=== PATIENT | female | born 1935 | race African-American/Black ===

== ENCOUNTER 2018-02-11 20:26 | Emergency (ER) | payer OTHER ==
[2018-02-11 20:36] VITALS: BMI 17.3
[2018-02-11 21:03] LABS: BILIRUBIN,URINE NEGATIVE (NEGATIVE); BLOOD/HEMOGLOBIN,URINE 2+ (NEGATIVE); GLUCOSE, URINE NEGATIVE (NEGATIVE); KETONES,URINE NEGATIVE (NEGATIVE); LEUKOCYTE ESTERASE ,URINE 2+ (NEGATIVE); NITRITES,URINE NEGATIVE (NEGATIVE); PROTEIN,URINE NEGATIVE (NEGATIVE); UROBILINOGEN,URINE NORMAL (NORMAL)
[2018-02-11 21:04] LABS: APPEARANCE,URINE SLIGHTLY HAZY (CLEAR); COLOR,URINE YELLOW (YELLOW)
[2018-02-11 21:11] LABS: BACTERIA,URINE 1+ /HPF (NEGATIVE); SQUAMOUS EPITHELIAL CELL,UR RARE /HPF (NEGATIVE)
--- NOTE | 2018-02-11 21:28 | DR.GENAD ---
HPI - PCP Primary Care Physician: Emelina - Complaint/Symptoms Chief Complaint Doctors Comments: Patient noticed blood in urine today. She denies a history of cardiopulmonary disease. Chief Complaint:: blood in urine - Source History Provided: Patient - Mode of Arrival Mode of Arrival: Ambulatory - Timing Onset of Chief Complaint: 02/04/18 PMH - PMH Past Medical History: Yes Past Medical History: Coronary Artery Disease, Dyslipidemia, Hypertension Past Surgical History: Yes Past Surgical History Comment: anneurysm repair - Family History History of Family Medical Conditions: No - Social History Does patient currently use any type of tobacco product: No Have you used tobacco products in the last 12 months: No Type of Tobacco Use: None Does any household member use tobacco: No Alcohol Use: None Do you use any recreational Drugs:: No Lives With: Family Lives Where: Home - infectious screening In the last 2 months have you had wt loss of >10#?: NO Have you had fever, night sweats or hemotysis?: No Have you traveled outside the country in the last 6 months?: No Isolation: Standard ROS - Review of Systems Eyes: No Symptoms Reported ENTM: No Symptoms Reported Respiratoy: No Symptoms Reported Cardiovascular: No Symptoms Reported Gastrointestinal/Abdominal: No Symptoms Reported Genitourinary: No Symptoms Reported Neurological: No Symptoms Reported Musculoskeletal: No Symptoms Reported Integumentary: No Symptoms Reported Hematologic/Lymphatic: No Symptoms Reported Endocrine: No Symptoms Reported Psychiatric: No Symptoms Reported All Other Systems: Reviewed and Negative PE - Vital Signs Vitals: Temperature 99.4 F Pulse Rate 97 Respiratory Rate 16 Blood Pressure 183/91 O2 Sat by Pulse Oximetry 99 - General Limitations: No Limitations General Appearance: Alert - Head Head Exam: Normal Inspection, Atraumatic - Eyes Eye exam: Normal Appearance, PERRL, EOMI - ENT ENT Exam: Normal Exam External Ear Exam: Normal External Inspection TM/Canal Exam: Bilateral Normal Nose Exam: Normal Nose Exam Mouth Exam: Normal Inspection Throat Exam: Normal Inspection - Neck Neck Exam: Normal Inspection, Full ROM - Chest Chest Inspection: Normal Inspection, Symmetric Chest Wall Rise - Respiratory Respiratory Exam: Normal Lung Sounds Bilat Respiratory Exam: Bilateral Clear to Auscultation - Cardiovascular Cardiovascular Exam: Regular Rate, Normal Rhythm - Abdominal Exam Abdominal Exam: Normal Inspection, Normal Bowel Sounds Abdominal Tenderness: negative: RUQ, RLQ, LUQ, LLQ, Epigastrium, Suprapubic, Diffuse, Mild, Moderate, Severe, Other - Extremities Extremities Exam: Normal Inspection Course - Reevaluation 1st: Improved ROR - Labs Reviewed Laboratory Results Reviewed?: Yes (Urine:2+bld, wbc: 10-20, Leuk 2+) Result Diagrams: 02/11/18 21:48 02/11/18 21:48 Laboratory: WBC 3.9 X10^3/uL (3.6-10.0) 02/11/18 21:48 RBC 4.06 X10^6/uL (3.5-5.4) 02/11/18 21:48 Hgb 13.4 g/dL (12.0-16.0) 02/11/18 21:48 Hct 40.6 % (36.0-47.0) 02/11/18 21:48 MCV 99.9 fL (80.0-100.0) 02/11/18 21:48 MCH 32.9 pg (27.0-34.0) 02/11/18 21:48 MCHC 32.9 g/dL (33.0-35.0) L 02/11/18 21:48 RDW 14.0 % (11.6-16.5) 02/11/18 21:48 Plt Count 252 X10^3/uL (150.0-450.0) 02/11/18 21:48 MPV 7.3 fL (7.4-11.0) L 02/11/18 21:48 Neut % (Auto) 61.5 % (42.0-75.0) 02/11/18 21:48 Lymph % (Auto) 27.3 % (21.0-51.0) 02/11/18 21:48 [place] % (Auto) 10.7 % (0.0-13.0) 02/11/18 21:48 Eos % (Auto) 0.2 % (0.9-2.9) L 02/11/18 21:48 Baso % (Auto) 0.3 % (0.2-1.0) 02/11/18 21:48 Neut # (Auto) 2.4 x10^3/uL (2.2-4.8) 02/11/18 21:48 Lymph # (Auto) 1.1 X10^3/uL (1.3-2.9) L 02/11/18 21:48 [place] # (Auto) 0.4 x10^3/uL (0.3-0.8) 02/11/18 21:48 Eos # (Auto) 0.0 x10^3/uL (0.0-0.2) 02/11/18 21:48 Baso # (Auto) 0.0 X10^3/uL (0.0-0.1) 02/11/18 21:48 Absolute Nucleated RBC 0.1 /100WBC 02/11/18 21:48 Sodium 141 mmol/L (136-145) 02/11/18 21:48 Corrected Sodium TNP 02/11/18 21:48 Potassium 4.1 mmol/L (3.5-5.1) 02/11/18 21:48 Chloride 105 mmol/L (98-107) 02/11/18 21:48 Carbon Dioxide 30.0 mmol/L (21-32) 02/11/18 21:48 BUN 17 mg/dL (7-18) 02/11/18 21:48 Creatinine 0.98 mg/dL (0.55-1.02) 02/11/18 21:48 Est GFR (MDRD) Af Amer > 60 (>60) 02/11/18 21:48 Est GFR (MDRD) Non-Af 58 (>60) L 02/11/18 21:48 Glucose 101 mg/dL (65-99) H 02/11/18 21:48 Calcium 9.5 mg/dL (8.5-10.1) 02/11/18 21:48 Corrected Calcium TNP 02/11/18 21:48 Total Bilirubin 0.30 mg/dL (0.2-1.0) 02/11/18 21:48 AST 11 Units/L (15-37) L 02/11/18 21:48 ALT 22 Units/L (12-78) 02/11/18 21:48 Alkaline Phosphatase 87 Units/L (46-116) 02/11/18 21:48 Total Protein 9.4 g/dL (6.4-8.2) H 02/11/18 21:48 Albumin 4.1 g/dL (3.4-5.0) 02/11/18 21:48 Globulin 5.3 g/dL (2.5-4.5) H 02/11/18 21:48 Albumin/Globulin Ratio 0.8 Ratio (1.1-2.1) L 02/11/18 21:48 Specimen Type Clean catch urine 02/11/18 20:56 Urine Color Yellow (YELLOW) 02/11/18 20:56 Urine Appearance Slightly hazy (CLEAR) 02/11/18 20:56 Urine pH 5.0 (5.0 - 8.0) 02/11/18 20:56 Ur Specific [place] 1.025 (1.000-1.030) 02/11/18 20:56 Urine Protein Negative (NEGATIVE) 02/11/18 20:56 Urine Glucose (UA) Negative (NEGATIVE) 02/11/18 20:56 Urine Ketones Negative (NEGATIVE) 02/11/18 20:56 Urine Occult Blood 2+ (NEGATIVE) 02/11/18 20:56 Urine Nitrite Negative (NEGATIVE) 02/11/18 20:56 Urine Bilirubin Negative (NEGATIVE) 02/11/18 20:56 Urine Urobilinogen Normal (NORMAL) 02/11/18 20:56 Ur Leukocyte Esterase 2+ (NEGATIVE) 02/11/18 20:56 Urine RBC 3-5 /HPF (NONE SEEN) 02/11/18 20:56 Urine WBC 10-20 /HPF (NONE SEEN) 02/11/18 20:56 Ur Squamous Epith Cells Rare /HPF (NEGATIVE) 02/11/18 20:56 Urine Bacteria 1+ /HPF (NEGATIVE) 02/11/18 20:56 Ur Culture Indicated? Yes/culture set up 02/11/18 20:56 - XRAY XRAY Interpreted by: Radiologist (Chest: Borderline cardiomegaly given AP technique with either scarring or mild effusion within the left costophrenic sulcus. No acute airspace disease identified.) - Diagnosis Discharge Problem: UTI (urinary tract infection) Qualifiers: Urinary tract infection type: acute cystitis Hematuria presence: with hematuria Qualified Code(s): N30.01 - Acute cystitis with hematuria - Discharge Plan Condition: Stable - Follow ups/Referrals Follow ups/Referrals: HUSEYIN PRICE [Primary Care Provider] - 3 days - Instructions
[2018-02-11] MEDS ORDERED: ROCEPHIN VIAL 500 MG IM ONE (21:29)
[2018-02-11] MEDS ORDERED: CATAPRES TAB 0.1 MG ONE (21:33)
[2018-02-11] MEDS ORDERED: CATAPRES TAB 0.1 MG PO ONE (21:33)
[2018-02-11] MEDS ORDERED: ROCEPHIN VIAL 500 MG ONE (21:33)
[2018-02-11 22:02] LABS: BASOPHILS % (AUTO) 0.3 % (0.2-1.0); EOSINOPHILS % (AUTO) 0.2 % (0.9-2.9); HEMATOCRIT 40.6 % (36.0-47.0); HEMOGLOBIN 13.4 g/dL (12.0-16.0); LYMPHOCYTES # (AUTO) 1.1 X10^3/uL (1.3-2.9); LYMPHOCYTES % (AUTO) 27.3 % (21.0-51.0); MEAN CORPUSCULAR HEMOGLOBIN 32.9 pg (27.0-34.0); MEAN CORPUSCULAR HGB CONC 32.9 g/dL (33.0-35.0); MEAN CORPUSCULAR VOLUME 99.9 fL (80.0-100.0); MEAN PLATELET VOLUME 7.3 fL (7.4-11.0); MONOCYTES # (AUTO) 0.4 x10^3/uL (0.3-0.8); MONOCYTES % (AUTO) 10.7 % (0.0-13.0); NEUTROPHILS # (AUTO) 2.4 x10^3/uL (2.2-4.8); NEUTROPHILS % (AUTO) 61.5 % (42.0-75.0); PLATELET COUNT 252 X10^3/uL (150.0-450.0); RED BLOOD COUNT 4.06 X10^6/uL (3.5-5.4); WHITE BLOOD COUNT 3.9 X10^3/uL (3.6-10.0)
--- NOTE | 2018-02-11 22:11 | RAD ---
AP chest Indication: Dysuria and hematuria Findings: Heart size is borderline enlarged given AP technique. There is blunting of the left costoph renic sulcus likely representing scarring however a small effusion is not entirely excluded. No focal airspace opacity or pneumothorax. No acute osseous abnormality. Impression: Borderline cardiomegaly given AP technique with either scarring or mild effusion within t he left costophrenic sulcus. No acute airspace disease identified. Reported By:
[2018-02-11 22:15] LABS: ALANINE AMINOTRANSFERASE 22 Units/L (12-78); ALBUMIN 4.1 g/dL (3.4-5.0); ALKALINE PHOSPHATASE 87 Units/L (46-116); ASPARTATE AMINO TRANSFERASE 11 Units/L (15-37); BLOOD UREA NITROGEN 17 mg/dL (7-18); CALCIUM 9.5 mg/dL (8.5-10.1); CHLORIDE 105 mmol/L (98-107); CREATININE 0.98 mg/dL (0.55-1.02); SODIUM 141 mmol/L (136-145); TOTAL PROTEIN 9.4 g/dL (6.4-8.2); eGFR BLACK RACES > 60 (>60); eGFR NON BLACK RACES 58 (>60)
[2018-02-11 22:37] VITALS: BP 170/79
== END 2018-02-11 22:36 | disposition home or self-care (01) ==
LOC: ER 20:40
DX: N30.01 Acute cystitis with hematuria (principal); B96.20 Unspecified Escherichia coli [E. coli] as the cause of diseases classified elsewhere; R94.31 Abnormal electrocardiogram [ECG] [EKG]
CPT/HCPCS: 36415; 71045; 80053; 81001; 85025; 87086; 87088; 87186; 93005; 93010; 96372; 99283; 99284; J0696